=== PATIENT | male | born 1970 | race Caucasian/White ===

== ENCOUNTER → 2018-06-10 | Outpatient (CLI) | payer OTHER ==
[~2018-06-10] MED LIST: AMLO10 PO; LOSA25 PO
== END | disposition home or self-care (01) ==
LOC: LAB 18:06 → LAB SHORT 18:06
DX: J02.9 Acute pharyngitis, unspecified (principal)
CPT/HCPCS: 87070; 87147

== ENCOUNTER 2019-03-05 22:33 | Emergency (ER) | payer OTHER ==
[~2019-03-05] VITALS: Ht 188 cm; Wt 127.0 kg
[2019-03-05] MEDS ORDERED: Norco 5-325 Ta1 EACH PO (23:32)
== END 2019-03-05 23:53 | disposition home or self-care (01) ==
LOC: ER 22:33
DX: S42.291A Other displaced fracture of upper end of right humerus, initial encounter for closed fracture (principal); S00.81XA Abrasion of other part of head, initial encounter; V29.3XXA Motorcycle rider (driver) (passenger) injured in unspecified nontraffic accident, initial encounter
CPT/HCPCS: 29105; 71046; 73030; 99283-25; A9270

== ENCOUNTER 2019-03-07 07:02 | Emergency (ER) | payer OTHER ==
[~2019-03-07] VITALS: Ht 188 cm; Wt 131.5 kg
[~2019-03-07 07:02] MED LIST changes: +Norco 5-325 Ta1 EACH PO
[2019-03-07 07:41] LABS: BASOPHILS ABSOLUTE AUTO 0.05 K/mm3 (0.00-0.23); BASOPHILS PERCENT AUTO 1 % (0-2); EOSINOPHILS ABSOLUTE AUTO 0.19 K/mm3 (0.00-0.68); EOSINOPHILS PERCENT AUTO 2 % (0-6); Hematocrit 43.4 % (37.0-53.0); Hemoglobin 14.5 g/dL (13.5-17.5); IMMATURE GRAN ABSOLUTE AUTO 0.03 K/mm3 (0.00-0.10); IMMATURE GRAN PERCENT AUTO 0 % (0-1); LYMPHOCYTES ABSOLUTE AUTO 1.62 K/mm3 (0.84-5.20); LYMPHOCYTES PERCENT AUTO 21 % (21-46); MONOCYTES ABSOLUTE AUTO 1.08 K/mm3 (0.16-1.47); MONOCYTES PERCENT AUTO 14 % (4-13); Mean Corpuscular HGB 29.7 pg (26.0-34.0); Mean Corpuscular HGB Conc 33.4 g/dL (31.5-36.5); Mean Corpuscular Volume 89 fL (80-100); Mean Platelet Volume 10.7 fL (9.1-12.4); NEUTROPHILS ABSOLUTE AUTO 4.79 K/mm3 (1.96-9.15); NEUTROPHILS PERCENT AUTO 62 % (41-73); Platelet Count 265 K/mm3 (150-400); RDW Coefficient Variation 11.9 % (11.7-14.2); RDW Standard Deviation 38.7 fL (35.1-46.3); Red Blood Cell Count 4.88 M/mm3 (4.30-5.90); White Blood Cell Count 7.76 K/mm3 (4.00-11.30)
[2019-03-07 08:00] LABS: Anion Gap 7 mmol/L (6-16); Blood Urea Nitrogen 9 mg/dL (8-24); Bun/Creatinine Ratio 13.8 (12.0-20.0); CO2, Blood 24 mmol/L (21-32); Calcium, Blood 8.4 mg/dL (8.5-10.1); Chloride, Blood 109 mmol/L (98-108); Creatinine, Blood 0.65 mg/dL (0.60-1.20); Glomerular Filtration Rate >60 (60-); Glucose, Blood 124 mg/dL (70-99); Potassium, Blood 3.3 mmol/L (3.5-5.5); Sodium, Blood 140 mmol/L (136-145)
[2019-03-07] MEDS ORDERED: ALBU90OI INH (09:01)
[2019-03-07] MEDS ORDERED: Prednisone20 MG PO (09:01)
== END 2019-03-07 09:42 | disposition home or self-care (01) ==
LOC: ER 07:02
PROVIDERS: Emergency Medicine
DX: R04.2 Hemoptysis (principal); R06.2 Wheezing
CPT/HCPCS: 71260; 80048; 85025; 94644; Q9967

== ENCOUNTER 2019-03-12 10:43 | Day surgery (SDC) | payer OTHER ==
[~2019-03-12] VITALS: Ht 188 cm; Wt 126.3 kg
[~2019-03-12 10:43] MED LIST changes: +ALBU90OI INH; +AMLO5 PO; +Hair, Skin & N1 EACH PO; +LOSARTAN-HCTZ1 EACH PO; +OXYC5 PO; +Prednisone20 MG PO; +VITAMIN D35000 UNIT PO
[2019-03-12] MEDS ORDERED: IBUP800 PO (11:29)
--- NOTE | 2019-03-12 13:50 | NUR ---
PT SPOKE TO BY DR MURILLO ABOUT DELAYING SURGERY TILL TOMORROW. FED PATIENT A SNACK, REMOVED IV RFA. PT SITE CLEAR, ASSISTED PT WITH DRESSING AND CALLED FOR A RIDE. PT TOLERANT TO IDEA OF COMING BACK TOMORROW AT 0730 TO BE ADMITTED TO SURG FLOOR AT 073 FOR A PLANNED SURGERY AT 0900.
--- NOTE | 2019-03-13 08:48 | NUR ---
PT TAKEN TO OR.
--- NOTE | 2019-03-13 12:00 | NUR ---
03/13/19 1200 Zechariah Clemens 0840 (LATE ENTRY): PT BROUGHT FROM ROOM 213. VSS, 1000 ML LR STARTED. RIGHT SHOULDER CLIPPED AND WIPED W/2% CHLORAHEXINE WIPES, NOZIN SWAB TO BILATERAL NARES, PAS ON. DR MORAN CONSENTING FOR GENERAL ANESTHESIA AND DR. MURILLO MARKED RIGHT SHOULDER OPERATIVE SITE.
--- NOTE | 2019-03-13 12:44 | NUR ---
ARRIVED FROM PACU VIA GURNEY, PT TRANSFERRED SELF TO BED, AWAKE, MEDICATED FOR 3/10 PAIN, CLEAR LIQUIDS GIVEN, NIMA WEL, DENIES ANY NAUSEA,DR. MURILLO WAS HERE TO SEE PT, PLAN TO DC WHEN NIMA PO AND PO PAIN MEDS, PAIN TOLERABLE AND VOIDING.
--- NOTE | 2019-03-13 16:30 | NUR ---
DC'D HOME, DC INSTRUCTIONS GIVEN, VERBALIZED UNDERSTANDING.
== END 2019-03-13 16:30 | disposition home or self-care (01) ==
LOC: SURS 10:43 → ORSCMMR 10:43 → SURS 10:43 → PRE IP 10:43 → SURS 10:44 → ORSCMMR 10:44 → SURS 03-13 07:30 → ORSCMMR 03-13 16:30 → SURS 03-13 16:30
PROVIDERS: Orthopaedic Surgery
PROC: 0PSD04Z Reposition Left Humeral Head with Internal Fixation Device, Open Approach (ICD-10-PCS; principal; 2019-03-13 09:00)
DX: S42.291A Other displaced fracture of upper end of right humerus, initial encounter for closed fracture (principal); I10 Essential (primary) hypertension; Z79.899 Other long term (current) drug therapy; E66.01 Morbid (severe) obesity due to excess calories; Z68.36 Body mass index [BMI] 36.0-36.9, adult
CPT/HCPCS: A9270; C1713; C1769; G0378; J0171; J0690; J0735; J1885; J2250; J2704; J2795; J3010; J7120

== ENCOUNTER 2020-06-12 07:37 | Emergency (ER) | payer OTHER ==
[~2020-06-12] VITALS: Ht 188 cm; Wt 127.0 kg
[~2020-06-12 07:37] MED LIST changes: +IBUP800 PO; +LOSARTAN-HCTZ1 EAC5 PO; -LOSARTAN-HCTZ1 EACH PO; +METO25ER PO; +VITAMIN D31000 UNI1 PO; -VITAMIN D35000 UNIT PO
[2020-06-12 08:42] LABS: BASOPHILS ABSOLUTE AUTO 0.07 K/mm3 (0.00-0.23); BASOPHILS PERCENT AUTO 1 % (0-2); EOSINOPHILS PERCENT AUTO 5 % (0-6); Hematocrit 44.9 % (37.0-53.0); Hemoglobin 15.1 g/dL (13.5-17.5); IMMATURE GRAN ABSOLUTE AUTO 0.02 K/mm3 (0.00-0.10); IMMATURE GRAN PERCENT AUTO 0 % (0-1); LYMPHOCYTES ABSOLUTE AUTO 1.66 K/mm3 (0.84-5.20); LYMPHOCYTES PERCENT AUTO 26 % (21-46); MONOCYTES ABSOLUTE AUTO 0.65 K/mm3 (0.16-1.47); MONOCYTES PERCENT AUTO 10 % (4-13); Mean Corpuscular HGB 29.6 pg (26.0-34.0); Mean Corpuscular HGB Conc 33.6 g/dL (31.5-36.5); Mean Corpuscular Volume 88 fL (80-100); Mean Platelet Volume 10.3 fL (9.1-12.4); NEUTROPHILS ABSOLUTE AUTO 3.61 K/mm3 (1.96-9.15); NEUTROPHILS PERCENT AUTO 57 % (41-73); Platelet Count 317 K/mm3 (150-400); RDW Coefficient Variation 12.2 % (11.7-14.2); RDW Standard Deviation 39.2 fL (35.1-46.3); White Blood Cell Count 6.31 K/mm3 (4.00-11.30)
[2020-06-12 08:58] LABS: Alanine Aminotransfer (ALT/SGP 47 U/L (12-78); Albumin, Blood 3.9 g/dL (3.4-5.0); Albumin/Globulin Ratio 1.1 (0.8-1.8); Alk Phos 88 U/L (50-136); Anion Gap 7 mmol/L (6-16); Aspartate Aminotrans (AST/SGOT 26 U/L (12-37); Bilirubin, Total 0.8 mg/dL (0.1-1.0); Blood Urea Nitrogen 8 mg/dL (8-24); Bun/Creatinine Ratio 12.4 (12.0-20.0); CO2, Blood 22 mmol/L (21-32); Calcium, Blood 8.7 mg/dL (8.5-10.1); Chloride, Blood 111 mmol/L (98-108); Creatinine, Blood 0.65 mg/dL (0.60-1.20); Globulin, Blood 3.5 g/dL (2.2-4.0); Glomerular Filtration Rate >60 (60-); Glucose, Blood 93 mg/dL (70-99); Potassium, Blood 4.1 mmol/L (3.5-5.5); Sodium, Blood 140 mmol/L (136-145); Total Protein, Blood 7.4 g/dL (6.4-8.2)
[2020-06-12] MEDS ORDERED: METPRE4DP PO (09:52)
== END 2020-06-12 10:11 | disposition home or self-care (01) ==
LOC: ER 07:37
PROVIDERS: Emergency Medicine
DX: U07.1 COVID-19 (principal); J98.01 Acute bronchospasm; I10 Essential (primary) hypertension; E78.5 Hyperlipidemia, unspecified; Z79.899 Other long term (current) drug therapy
CPT/HCPCS: 36415; 71045; 80053; 85025; 94640; 96374; 99283-25; A9270; J2930

== ENCOUNTER 2021-02-05 14:50 | Emergency (ER) | payer OTHER ==
[~2021-02-05] VITALS: Ht 188 cm; Wt 124.7 kg
[~2021-02-05 14:50] MED LIST changes: +METPRE4DP PO
== END 2021-02-05 15:15 | disposition home or self-care (01) ==
LOC: ER 14:50
DX: K42.9 Umbilical hernia without obstruction or gangrene (principal); I10 Essential (primary) hypertension; E78.5 Hyperlipidemia, unspecified; Z79.899 Other long term (current) drug therapy
CPT/HCPCS: 99282-25

== ENCOUNTER 2021-09-27 08:00 | Day surgery (SDC) | payer OTHER ==
[~2021-09-27] VITALS: Ht 188 cm; Wt 137.6 kg
[2021-09-27] MEDS ORDERED: SPIR25 PO (08:26)
--- NOTE | 2021-09-27 08:48 | NUR ---
ELEVATED BP REPORTED TO DR. RUBIN. NO NEW ORDERS. PLAN TO PROCEED WITH PLANNED COLONOSCOPY. PT AGREES TO TAKE BP MEDICATION PREVIOUSLY PRESCRIBED.
--- NOTE | 2021-09-27 09:09 | NUR ---
History, Chart, Medications and Allergies reviewed before start of procedure. Lungs clear T/O to Auscultation. Patient confirms NPO status and agrees with scheduled surgery. Patient States Post-Procedure ride home has been arranged with Caitlyn.
--- NOTE | 2021-09-27 09:22 | NUR ---
AGREE TO PREVIOUS NOTES WRITTEN BY STUDENT NURSE.
--- NOTE | 2021-09-27 10:02 | NUR ---
09/27/21 Annelise Rivera History, Chart, Medications and Allergies reviewed before start of procedure. Patient confirms NPO status and agrees with scheduled surgery. 3-LEAD EKG REVIEWED WITH PHYSICIAN PRIOR TO START OF PROCEDURE. MONITOR INTACT WITH CONTINUOUS PULSE OXIMETRY AND INTERMITTENT BP. PATIENT DETERMINED TO BE ASA APPROPRIATE FOR PROPOFOL SEDATION PRIOR TO START OF PROCEDURE BY
--- NOTE | 2021-09-27 10:26 | NUR ---
DR RUBIN AWARE OF PT ELEVATED BP. PT INSTRUCTED TO TAKE BP MEDICATION SOON HE GETS HOME
--- NOTE | 2021-09-27 10:50 | NUR ---
Discharge instructions reviewed with patient. Patient verbalizes understanding. Copy given to patient to take home. Discharged via wheelchair to private car for ride home.
== END 2021-09-27 10:51 | disposition home or self-care (01) ==
LOC: ORSCMMR 08:00 → ORD 09:30 → ORSCMMR 10:51
PROVIDERS: Surgery
PROC: 0DJD8ZZ Inspection of Lower Intestinal Tract, Via Natural or Artificial Opening Endoscopic (ICD-10-PCS; principal; 2021-09-27 09:30)
DX: Z12.11 Encounter for screening for malignant neoplasm of colon (principal); F41.9 Anxiety disorder, unspecified; F32.A Depression, unspecified; I10 Essential (primary) hypertension; I42.2 Other hypertrophic cardiomyopathy; I21.4 Non-ST elevation (NSTEMI) myocardial infarction; Z79.899 Other long term (current) drug therapy
CPT/HCPCS: J2704; J7120

== ENCOUNTER 2021-12-30 17:30 | Emergency (ER) | payer OTHER ==
[~2021-12-30] VITALS: Ht 188 cm; Wt 127.0 kg
[~2021-12-30 17:30] MED LIST changes: +SPIR25 PO
== END 2021-12-30 22:46 | disposition home or self-care (01) ==
LOC: ER 17:30
DX: K44.9 Diaphragmatic hernia without obstruction or gangrene (principal); I10 Essential (primary) hypertension; Z79.899 Other long term (current) drug therapy
CPT/HCPCS: 74177; Q9967